=== PATIENT | female | born 1955 | race Caucasian/White ===

== ENCOUNTER 2019-11-20 10:44 | Outpatient (CLI) | payer BC, SELFPAY ==
--- NOTE | ~2019-11-20 | XR_ITS ---
XR knee LT 2V 11/20/2019 11:04 Indication: Left knee pain Procedure: 3 views left knee Comparison: No prior studies for comparison. Findings: There is moderate osteoarthritis of the left knee. No fracture or traumatic malalignment. N o significant joint effusion. No radiopaque foreign bodies. Impression: 1: Moderate osteoarthritis of the left knee. Reviewed, dictated and finalized at location A. Impression: 1: Moderate osteoarthritis of the left knee.
== END 2019-11-20 10:45 | disposition home or self-care (01) ==
PROVIDERS: PCP Nurse Practitioner Family; Visit Provider Nurse Practitioner Family
DX: M25.562 Pain in left knee (principal); M17.12 Unilateral primary osteoarthritis, left knee
CPT/HCPCS: 73560

== ENCOUNTER 2020-06-24 08:17 | Outpatient (CLI) | payer BC, SELFPAY ==
--- NOTE | ~2020-06-24 | MM_ITS ---
EXAMINATION: MM screening [facility] BI w william HISTORY: Screening mammogram TECHNIQUE: Craniocaudal and mediolateral oblique 3-D tomosynthesis images were obtained and synthetic 2-D images were generated. CAD analysis was submitted and interpreted. COMPARISON: No prior mammogram is available for comparison at this institution. BREAST PARENCHYMAL COMPOSITION: The breasts are almost entirely fatty. FINDINGS: There is no evidence of suspicious mass, calcification, or architectural distortion to sugg est malignancy in either breast. There has been no suspicious interval change. IMPRESSION: 1. No mammographic evidence of malignancy. 2. Recommend routine screening mammography in one year. BI-RADS Category 1: Negative Reviewed, dictated and finalized at location A.
--- NOTE | ~2020-06-24 | DEXA_ITS ---
Bone Density Report Name: Erin Davis Age: 65 Sex: Female Ethnicity: White Date of : 1955 Indication: postmenopausal; prior fracture; rheumatoid arthritis; Referring Provider: Trisha, Tashia Otoole Study: Bone densitometry was performed. Exam Date: June 24, 2020 Accession number: [id number] Bone Density: Region BMD T-score Z-score Classification AP Spine (L1, L2, L3) 0.897 -1.1 0.7 Osteopenia Femoral Neck (Left) 0.489 -3.2 -1.7 Osteoporosis Total Hip (Left) 0.830 -0.9 0.4 Normal Total Hip Bilateral Avg 0.800 -1.1 0.2 Osteopenia Femoral Neck (Right) 0.547 -2.7 -1.1 Osteoporosis Total Hip (Right) 0.769 -1.4 -0.1 Osteopenia World Health Organization criteria for BMD impression classify patients as: Normal (T-score at or above -1.0), Osteopenia (T-score between -1.0 and -2.5), or Osteoporosis (T-score at or below -2.5). 10-year Fracture Risk: FRAX not reported because: Some T-score for Spine Total or Hip Total or Femoral Neck at or below -2.5 Treated for osteoporosis Clinical Information Provided by Patient: Has had a low trauma fracture Has rheumatoid arthritis Is being treated for osteoporosis Has used the following medications: Boniva (i.e. ibandronate), Vitamin D, Calcium Patient maximum height was 63 Menopause Age: 49 Drinks caffeinated beverages Onset of menses at age 11 Number of children 3 Impression: The patient has established osteoporosis, based on the Left Femoral Neck T-score and the existence of a prior fracture. The patient has risk factors, including: previous fracture. Discussion: It is important to ask patients whether they are taking their medications and to encourage continued and appropriate compliance with their osteoporosis therapies to reduce fracture risk. It is also important to review their risk factors and encourage appropriate calcium and vitamin D intakes, exercise, fall prevention and other lifestyle measures. Follow-Up: Consider a repeat BMD and Vertebral Fracture Assessment (VFA) exam in 2 years or sooner if medically necessary, to reassess this patient's status. Reported by: MAICO on 06/24/2020 8:42:00 AM. Reviewed, dictated and finalized at location ANicolas VALLEJO
== END 2020-06-24 08:18 | disposition home or self-care (01) ==
LOC: ANHIMG 08:23
PROVIDERS: PCP Family Medicine; Visit Provider Nurse Practitioner Obstetrics & Gynecology
DX: Z12.31 Encounter for screening mammogram for malignant neoplasm of breast (principal); Z78.0 Asymptomatic menopausal state; M81.0 Age-related osteoporosis without current pathological fracture; M85.88 Other specified disorders of bone density and structure, other site
CPT/HCPCS: 77063; 77067; 77080

== ENCOUNTER 2021-06-27 09:11 | Outpatient (CLI) | payer BC, MEDICARE, SELFPAY ==
--- NOTE | ~2021-06-27 | MM_ITS ---
EXAMINATION: MM screening [facility] BI w william HISTORY: Screening mammogram TECHNIQUE: Craniocaudal and mediolateral oblique 3-D tomosynthesis images were obtained and synthetic 2-D images were generated. CAD analysis was submitted and interpreted. COMPARISON: 06/24/2020 bilateral screening mammogram BREAST PARENCHYMAL COMPOSITION: The breasts are almost entirely fatty. FINDINGS: There is no evidence of suspicious mass, calcification, or architectural distortion to sugg est malignancy in either breast. There has been no suspicious interval change. IMPRESSION: 1. No mammographic evidence of malignancy. 2. Recommend routine screening mammography in one year. BI-RADS Category 1: Negative Reviewed, dictated and finalized at location A.
== END 2021-06-27 09:12 | disposition home or self-care (01) ==
LOC: ANHIMG 09:12
PROVIDERS: PCP Family Medicine; Visit Provider Nurse Practitioner Family
DX: Z12.31 Encounter for screening mammogram for malignant neoplasm of breast (principal)
CPT/HCPCS: 77063; 77067

== ENCOUNTER → 2022-05-01 10:33 | Outpatient (CLI) | payer MEDICARE, SELFPAY ==
--- NOTE | ~2022-05-01 | XR_ITS ---
XR_[id number]_CR DATE: 05/01/2022 11:01 INDICATION: Bilateral knee pain. No injury. TECHNIQUE: AP and lateral views of right knee COMPARISON: None FINDINGS: There is some calcifications within the medullary space of the mid to distal femoral shaft which may be due to bone infarct or benign chondroid neoplasm. There is moderately severe tricompartment osteoarthritis, with prominent loss of joint spaces at the medial compartment particularly, moderately prominent periarticular spurring at the patellofemoral co mpartment. Mild suprapatellar knee joint effusion. No fracture or dislocation, periosteal reaction or bone destruction is detected. There is chondrocalc inosis at the medial and lateral compartments. Mild osteopenia is suggested. IMPRESSION: Mild knee joint effusion Moderately severe tricompartment osteophytosis Chondrocalcinosis Reviewed, dictated and finalized at Location A. Reviewed, dictated and finalized at location B. 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
--- NOTE | ~2022-05-01 | XR_ITS ---
XR_KNEE1-2VLT_CR DATE: 05/01/2022 11:01 INDICATION: Bilateral knee joint pain TECHNIQUE: AP and lateral views COMPARISON: None FINDINGS: Mild osteopenia. Mild suprapatellar knee joint effusion. There is mild to moderate tricompartment osteoarthritis, with moderate loss of medial Department join t space height. No radiopaque intra-articular loose body. No fracture, dislocation, periosteal reacti on or bone destruction. IMPRESSION: Mild to moderate osteoarthritis Mild knee joint effusion Reviewed, dictated and finalized at Location A. Reviewed, dictated and finalized at location B. 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
== END ==
PROVIDERS: PCP Nurse Practitioner Family; Visit Provider Nurse Practitioner Family
DX: M25.461 Effusion, right knee (principal); M25.462 Effusion, left knee; M17.0 Bilateral primary osteoarthritis of knee
CPT/HCPCS: 73560

== ENCOUNTER 2022-05-11 07:57 | Outpatient (CLI) | payer MEDICARE, SELFPAY ==
[2022-05-11 19:43] LABS: Alanine Aminotransferase 34 U/L (6-35); Albumin Level 4.9 g/dL (3.5-5.1); Alkaline Phosphatase 80 U/L (38-126); Anion Gap 9 mmol/L (8-16); Aspartate Amino Transferase 26 U/L (14-36); Bilirubin,Total 0.5 mg/dL (0.2-1.3); Blood Urea Nitrogen 21 mg/dL (7-17); Calcium 9.7 mg/dL (8.4-10.2); Carbon Dioxide 27 mmol/L (22-30); Chloride 105 mmol/L (98-107); Cholesterol 213 mg/dL (0-200); Estimated Glomerular Filt Rate 41; Glucose 85 mg/dL (65-110); HDL Direct 36 mg/dL; Potassium 4.9 mmol/L (3.4-5.0); Sodium 141 mmol/L (137-145); Triglycerides 184 mg/dL (<150)
[2022-05-11 19:51] LABS: Vitamin D 25 Hydroxy 35.1 ng/mL
[2022-05-11 19:55] LABS: LDL Cholesterol Direct 98 mg/dL
[2022-05-11 20:47] LABS: Basophils Percent Auto 0.6 % (0.2-1.2); Eosinophils Absolute Auto 0.5 K/mm3 (0-0.3); Eosinophils Percent Auto 6.9 % (0-4.4); Hematocrit 38.1 % (37.0-47.0); Hemoglobin 11.9 g/dL (12.0-15.0); Immature Granulocyte Absolute 0.03 K/mm3 (0.00-0.031); Immature Granulocyte Percent A 0.5 % (0-0.5); Lymphocytes Absolute Auto 1.76 K/mm3 (0.9-3.2); Lymphocytes Percent Auto 27.2 % (18.3-44.2); Mean Corpuscular HGB Conc 31.2 g/dl (32-36); Mean Corpuscular Hemoglobin 28.5 pg (26-34); Mean Corpuscular Volume 91.4 fl (80-100); Mean Platelet Volume 9.3 fl (7.4-10.4); Monocytes Absolute Auto 0.6 K/mm3 (0.1-0.6); Monocytes Percent Auto 8.8 % (2.6-8.5); Neutrophils Absolute Auto 3.6 K/mm3 (1.3-6.7); Platelet Count Result 279 k/mm3 (150-375); Red Blood Count 4.17 M/mm3 (4.2-5.4); Red Cell Distribution Width 13.7 % (11.5-14.5); White Blood Count 6.5 K/mm3 (4.5-10.0)
== END 2022-05-11 07:58 | disposition home or self-care (01) ==
LOC: ANHGOSHLAB 07:59
PROVIDERS: PCP Nurse Practitioner Family; Visit Provider Nurse Practitioner Family
DX: I10 Essential (primary) hypertension (principal); Z78.0 Asymptomatic menopausal state; E78.5 Hyperlipidemia, unspecified; E55.9 Vitamin D deficiency, unspecified
CPT/HCPCS: 36415; 80053; 80061; 82306; 84443; 85025

== ENCOUNTER 2022-07-10 14:30 | Outpatient (CLI) | payer MEDICARE, SELFPAY ==
--- NOTE | ~2022-07-10 | DEXA_ITS ---
Bone Density Report Name: SHANNEN VENTURA Age: 67 Sex: Female Ethnicity: White Date of : 1955 Indication: osteopenia; parental hip fracture; prior fracture; asthma or emphysema; rheumatoid arthritis; postmenopausal Referring Provider: DEYANIRA CORDERO Study: Bone densitometry was performed. Exam Date: July 10, 2022 Accession number: [id number] Bone Density: Region BMD T-score Z-score Classification AP Spine(L1, L2, L3) 0.904 -1.0 0.9 Normal Femoral Neck (Left) 0.568 -2.5 -0.8 Osteoporosis Total Hip (Left) 0.832 -0.9 0.5 Normal Femoral Neck (Right) 0.560 -2.6 -0.9 Osteoporosis Total Hip (Right) 0.783 -1.3 0.1 Osteopenia Total Hip Mean 0.808 -1.1 0.3 Osteopenia World Health Organization criteria for BMD impression classify patients as: Normal (T-score at or above -1.0), Osteopenia (T-score between -1.0 and -2.5), or Osteoporosis (T-score at or below -2.5). 10-year Fracture Risk: FRAX not reported because: Some T-score for Spine Total or Hip Total or Femoral Neck at or below -2.5 Previous Exams: Region Exam Age BMD T-score BMD Change BMD Change Date g/cm2 vs Baseline vs Previous AP Spine (L1-L3) 07/10/2022 67 0.904 -1.0 0.007 (0.8%) 0.007 (0.8%) 06/24/2020 65 0.897 -1.1 Total Hip(Left) 07/10/2022 67 0.832 -0.9 0.003 (0.3%) 0.003 (0.3%) 06/24/2020 65 0.830 -0.9 Total Hip(Right) 07/10/2022 67 0.783 -1.3 0.015 (1.9%) 0.015 (1.9%) 06/24/2020 65 0.769 -1.4 *Denotes significance at 95% confidence level, LSC for AP Spine = 0.022 g/cm2, LSC for Total Hip = 0.027 g/cm2 Clinical Information Provided by Patient: Has had a low trauma fracture Parent has had a hip fracture Has rheumatoid arthritis Has used the following medications: Reclast (i.e. zoledronate), Vitamin D, Calcium Has the following medical conditions: Asthma or Emphysema Patient maximum height was 62.5 Menopause Age: 49 Drinks caffeinated beverages Onset of menses at age 11 Number of children 3 Impression: The patient has established osteoporosis, based on the Right Femoral Neck T-score and the existence of a prior fracture. The patient has risk factors, including: parental hip fracture, previous fracture. No significant bone loss was observed. Discussion: HIGH RISK OF FRACTURE. BONE DENSITY IS UNDESIRABLY LOW AT ONE OR MORE SKELETAL SITES, CONSISTENT WITH POSTMENOPAUSAL OSTEOPOROSIS. This patient's lowest T-score, in a patient who has previous
--- NOTE | ~2022-07-10 | MM_ITS ---
EXAMINATION: MM screening [facility] BI w william HISTORY: Screening mammogram TECHNIQUE: Craniocaudal and mediolateral oblique 3-D tomosynthesis images were obtained and synthetic 2-D images were generated. CAD analysis was submitted and interpreted. COMPARISON: 06/27/2021, 06/24/2020 BREAST PARENCHYMAL COMPOSITION: There are scattered areas of fibroglandular density. FINDINGS: No suspicious mass, calcification, or architectural distortion are identified in either aliza ast to suggest malignancy. There has been no suspicious interval change. IMPRESSION: 1. No mammographic evidence of malignancy. 2. Recommend routine screening mammography in one year. BI-RADS Category 1: Negative Reviewed, dictated and finalized at location A.
== END 2022-07-10 14:31 | disposition home or self-care (01) ==
LOC: ANHIMG 14:32
PROVIDERS: PCP Nurse Practitioner Family; Visit Provider Nurse Practitioner Family
DX: Z12.31 Encounter for screening mammogram for malignant neoplasm of breast (principal); Z78.0 Asymptomatic menopausal state; M81.0 Age-related osteoporosis without current pathological fracture; M85.851 Other specified disorders of bone density and structure, right thigh
CPT/HCPCS: 77063; 77067; 77080

== ENCOUNTER 2023-10-12 09:56 | Outpatient (CLI) | payer MEDICARE, SELFPAY ==
--- NOTE | ~2023-10-12 | MM_ITS ---
EXAMINATION: MM screening [facility]ene[facility] BI w william HISTORY: Screening TECHNIQUE: Craniocaudal and mediolateral oblique 3-D tomosynthesis images were obtained and synthetic 2-D images were generated. CAD analysis was submitted and interpreted. COMPARISON: Comparison to multiple prior studies sequentially, with oldest reviewed study dated 06/24. BREAST PARENCHYMAL COMPOSITION: Not dense: There are scattered areas of fibroglandular density. FINDINGS: There is no evidence of suspicious mass, calcification, or architectural distortion to sugg est malignancy in either breast. There has been no suspicious interval change. IMPRESSION: 1. No mammographic evidence of malignancy. 2. Recommend routine screening mammography in one year. BI-RADS Category 1: Negative Reviewed, dictated and finalized at location B.
== END 2023-10-12 09:57 | disposition home or self-care (01) ==
PROVIDERS: PCP Family Medicine; Visit Provider Nurse Practitioner
DX: Z12.31 Encounter for screening mammogram for malignant neoplasm of breast (principal)
CPT/HCPCS: 77063; 77067

== ENCOUNTER 2024-10-16 08:38 | Outpatient (CLI) | payer MEDICARE, SELFPAY ==
--- NOTE | ~2024-10-16 | MM_ITS ---
EXAMINATION: [facility] HISTORY: Screening mammogram TECHNIQUE: Craniocaudal and mediolateral oblique 3-D tomosynthesis images were obtained and synthetic 2-D images were generated. CAD analysis was submitted and interpreted. COMPARISON: 10/12/2023, 07/10/2022, 07/15/2021, 06/24/2020 BREAST PARENCHYMAL COMPOSITION:Not Dense. The breasts are almost entirely fatty FINDINGS: No suspicious mass, calcification, or architectural distortion are identified in either breast to suggest malignancy. There has been no suspicious interval change. IMPRESSION: No mammographic evidence of malignancy. Recommend routine screening mammography in one year. BI-RADS Category 1: Negative Reviewed, dictated and finalized at location .
--- NOTE | ~2024-10-16 | DEXA_ITS ---
Bone Density Report Name: SHANNEN VENTURA Age: 69 Sex: Female Ethnicity: White Date of : 1955 Indication: osteopenia; monitoring treatment; parental hip fracture; asthma or emphysema; rheumatoid arthritis; Referring Provider: QUINTON, JUNIOR Muhammad Study: Bone densitometry was performed. Exam Date: October 16, 2024 Accession number: [id number] Bone Density: Region BMD T-score Z-score Classification AP Spine(L1-L4) 1.029 -0.2 2.0 Normal Femoral Neck (Left) 0.539 -2.8 -1.0 Osteoporosis Total Hip (Left) 0.799 -1.2 0.4 Osteopenia Femoral Neck (Right) 0.543 -2.8 -0.9 Osteoporosis Total Hip (Right) 0.738 -1.7 -0.1 Osteopenia Total Hip Mean 0.769 -1.5 0.2 Osteopenia World Health Organization criteria for BMD impression classify patients as: Normal (T-score at or above -1.0), Osteopenia (T-score between -1.0 and -2.5), or Osteoporosis (T-score at or below -2.5). 10-year Fracture Risk: FRAX not reported because: Some T-score for Spine Total or Hip Total or Femoral Neck at or below -2.5 Treated for osteoporosis Previous Exams: Region Exam Age BMD T-score BMD Change BMD Change Date g/cm2 vs Baseline vs Previous Total Hip(Left) 10/16/2024 69 0.799 -1.2 -0.031 (-3.7%) -0.033 (-4.0%) 07/10/2022 67 0.832 -0.9 0.003 (0.3%) 0.003 (0.3%) 06/24/2020 65 0.830 -0.9 Total Hip(Right) 10/16/2024 69 0.738 -1.7 -0.031 (-4.0%) -0.046 (-5.8%) 07/10/2022 67 0.783 -1.3 0.015 (1.9%) 0.015 (1.9%) 06/24/2020 65 0.769 -1.4 *Denotes significance at 95% confidence level, LSC for Total Hip = 0.027 g/cm2 Clinical Information Provided by Patient: Parent has had a hip fracture Has rheumatoid arthritis Is being treated for osteoporosis Has used the following medications: Reclast (i.e. zoledronate), Prolia (i.e. denosumab), Vitamin D, Calcium Has the following medical conditions: Asthma or Emphysema Patient maximum height was 62.5 Menopause Age: 49 Drinks caffeinated beverages Onset of menses at age 11 Number of children 3 Impression: The patient has osteoporosis, based on the Left Femoral Neck T-score. The patient has risk factors, including: parental hip fracture. The BMD for the Total Hip(Left) decreased, changing by -4.0% since the last DXA exam. The BMD for the Total Hip(Right) decreased, changing by -5.8% since the last DXA exam. Discussion: SIGNIFICANT BONE LOSS OBSERVED. Adherence to therapy (including calcium and vitamin D intake) should be assessed. If compliance is not a factor, review management and exclusion of secondary causes of bone loss. It is important to ask patients whether they are taking their medications and to encourage continued and appropriate compliance with their osteoporosis therapies to reduce fracture risk. It is also important to review their risk factors and encourage appropriate calcium and vitamin D intakes, exercise, fall prevention and other lifestyle measures. Follow-Up: Consider a repeat BMD and Vertebral Fracture Assessment (VFA) exam in 2 years or sooner if medically necessary, to reassess this patient's status. Reported by: MALIK on 10/16/2024 9:23:00 AM. Reviewed, dictated and finalized at location A.
--- OUTSIDE RECORDS SUMMARY | 2024-10-16 08:52 | XMS_ITS | Clinical Summary ---
Author Organization [facility] Address [address] [place] [address] Care Team Providers Care Building Components Designer Name Role Phone Alyssa Jenkins MD Primary Care Provider Un available Source Comments [facility],non-owned Affiliates and Associated Physician Practices is amultiple site organization consisting of ambulatory clinics and hospital sitesin [place], [place], [place] and [place]. This disclosure is being madepursuant to the Care Everywhere program and may not contain all information available regarding this patient. Last updated 17.[facility] Allergies Active Allergy Reactions Criticality Noted Date Comments Skin Adhesives Rash Medium 04/08/2020 Paper tape Epinephrine-Chlorpheniramine Anaphylaxis High 2020 Latex Rash Medium 04/08/2020 Penicillins Anaphylaxis High 02/12/2020 Medications * Be aware that medications may not be up to date on this document. Alwaysverify current medications with the patient. traMADol (ULTRAM) 50 MG tablet Take 50 mg by mouth 2 times daily as needed For pain. 0 Active ALPRAZolam (XANAX) 0.25 MG tablet Take 1 (one) tablet by mouth once daily as needed 0 Active albuterol HFA (PROVENTIL;VENT HERMAN;PROAIR) 108 (90 Base) MCG/ACT inhaler Inhale 1 (one) puff by mouth every 4 hours as needed 0 Active ASMANEX HFA 100 MCG/ACT Inhale 1 puff by mouth once daily 0 Active montelukast (SINGULAIR) 10 MG tablet Take 10 mg by mouth once daily As needed 0 Active diclofenac sodium (VOLTAREN) 1 % gel Apply 2 (two) g to 4 (four) g to affected area 4 times daily as needed (Knees and hands) 0 Active Ascorbic Acid (VITAMIN C) 500 MG Active aspirin (ASPIRIN) 81 MG chew tablet Take 1 (one) tablet by mouth once daily Active colchicine 0.6 MG tablet Take 1 (one) tablet by mouth once daily 30 tablet 2 1 Active Additional Information Patient not taking.Reported on 07/10/2023 losartan (Cozaar) 25 MG tablet Take 1 (one) tablet by mouth once daily Active diclofenac sodium EC (Voltaren) 50 MG tablet Take 1 (one) tablet by mouth 2 times daily Active Active Problems Problem Noted Date Diagnosed Date MGUS (monoclonal gammopathy of unknown significa nce) 07/05/2021 Senile osteoporosis 11/30/2020 Immunizations Immunization Administration Dates Next Due FLU VACCINE TRI IIV3 SPLIT PF IM (FLUVIRIN) 04/2013 INFLUENZA VACCINE, HIGH-DOSE , QUADR. (FLUZONE HIGH-DOSE QUADRIVALENT; 65Y+), 0.7 ML (HD-IIV4) 12/20/2019 Family History Medical History Relation Name Comments Lupus Father Lupus Paternal Uncle Relation Name Status Comments Father Paternal Uncle Social History Tobacco Use Types Packs/Day Years Used Date Smoking Tobacco: Former Cigarettes Q uit: 02/12/1980 Smokeless Tobacco: Never Tobacco Cessation:Counseling Given: Not Answered Alcohol Use Standard Drinks/Week Comments Never 0 (1 standard drink = 0.6 oz pur e alcohol) AUDIT-C Answer Date Recorded Q1: How often do you have a drink containing alc ohol? Never 02/12/2020 Average Number of Drinks Not on file 020 Frequency of Binge Drinking Not on file 01/26 PHQ-2 Answer Date Recorded PHQ2 TOTAL SCORE 0 11/11/2020 Comments Unknown Sex and Gender Information Value Date Recorded Sex Assigned at Not on file Legal Sex Female 2:41 PM EDGE INKER Gender Identity Not on file Sexual Orientation Not on file Last Filed Vital Signs Vital Sign Reading Time Taken Comments Blood Pressure 136/83 01/15/2024 12:56 PM EDGE INKER Pulse 74 01/15/2024 12:56 PM ED[facility] INKER Temperature 36.7 C (98 F) 01/15/2024 12:56 PM ED[facility] INKER Respiratory Rate 20 01/15/2024 12:56 PM [facility]ER Oxygen Saturation 99% 01/15/2024 12:56 PM [facility] INKER Inhaled Oxygen Concentration - - Weight 78.7 kg (173 lb 9.6 oz) 01/15/2024 12:56 PM EDGE INKER Height 157.5 cm (5' 2) 07/10/2023 10:18 AM CDT Body Mass Index 31.75 07/10/2023 10:18 AM CDT Plan of Treatment Upcoming Encounters Date Type Department Care Team (Late st Contact Info) Description 01/13/2025 1:00 PM EDGE INKER Office Visit [facility] - Hematology/Oncology [address] [place] [id number] Amol Hammer MD [address] [facility] [place], [place] [id number] Health Maintenance Due Date Last Done Comments BONE DENSITY TESTING 1955 COLOGUARD (AGES 45-75) - COLON CA SCREENING 1955 COLON MONITORING 1955 COLONOSCOPY - COLON CA SCREENING 1955 CT COLONOGRAPHY - COLON CA SCREENING 1955 Colorectal Cancer Screening 1955 FIT - COLON CA SCREENING 1955 FLEX SIG - COLON CA SCREENING 1955 LIPID TESTING 1955 MAMMOGRAM 1955 DTAP/TDAP/TD VACCINES (1 - Tdap) 1973 PNEUMOCOCCAL VACCINE 50+ (1 of 1 - PCV) 02/27/2004 ZOSTER VACCINE (1 of 2) 02/27/2004 COVID-19 VACCINE (3 - season) 2023 05/13/2020, 04/22/2020 DEPRESSION SCREENING 02/27/2024 MEDICARE AWV CALENDAR YEAR 2024 INFLUENZA VACCINE (#1) 2024 12/20/2019, 2013 SCREENING FOR DIABETES 01/14/2027 4, 10/22/2023, 07/10/2023, Additional history exists Respiratory Syncytial Virus (RSV) Vaccine Pt: or over 60 yrs (1 - 1-dose 75+ series) 2029 HEPATITIS C SCREENING Completed 02/12/2020 HEPATITIS B VACCINE Aged Out No longe r eligible based on patient's age to complete this topic HIB VACCINE Aged Out No longer eligi ble based on patient's age to complete this topic HPV VACCINE Aged Out No longer eligi ble based on patient's age to complete this topic MENINGOCOCCAL (Group B) VACCINE SHARED DECISION-MAKING Aged Out No longer eligible based on patient's age to complete this topic MENINGOCOCCAL GROUPS A/C/Y/W VACCINE Aged Out No longer eligible based on patient's age to complete this topic Procedures Procedure Name Priority Date/Time Associated Diagnosis Comments COMPREHENSIVE METABOLIC PANEL STAT 01/15/2024 12:27 PM ED[facility] INKER MGUS (monoclonal gammopathy of unknown significance) HEPATITIS C AB SCREEN RFLX NAAT QUANT Routine 02/12/2020 12:40 PM EDGE INKER Polyarthralgia from Last 3 Months or Most Recently Relevant to Health Maintenance Results * (ABNORMAL) COMPREHENSIVE METABOLIC PANEL (01/15/2024 12:27 PM EDGE INKER) BUN 28(H) 7 - 26 mg/dL 01/15/2024 1:21 PM [facility] Creatinine 1.30(H) 0.56 - 0.96 mg/dL 01/15/2024 1:21 PM [facility] Sodium 138 136 - 145 mmol/L 01/15/2024 1:21 PM [facility] Potassium 4.4 3.5 - 4.5 mmol/L 01/15/2024 1:21 PM [facility] Chloride 106 98 - 107 mmol/L 01/15/2024 1:21 PM [facility] CO2 24 22 - 29 mmol/L 01/15/2024 1:21 PM [facility] Glucose 79 70 - 99 mg/dL 01/15/2024 1:21 PM [facility] Calcium 9.8 8.4 - 10.2 mg/dL 01/15/2024 1:21 PM [facility] Protein Total 7.5 6.0 - 8.3 g/dL 01/15/2024 1:21 PM [facility] Albumin 4.0 3.4 - 5.0 g/dL 01/15/2024 1:21 PM [facility] Bilirubin Total 0.5 0.2 - 1.2 mg/dL 01/15/2024 1:21 PM [facility] Alkaline Phosphatase 83 40 - 150 U/L 01/15/2024 1:21 PM [facility] ALT 51 5 - 55 U/L 01/15/2024 1:21 PM [facility] AST 30 5 - 34 U/L 01/15/2024 1:21 PM [facility] Anion Gap 8 6 - 16 01/15/2024 1:21 PM [facility] BUN/Creatinine Ratio 22 7 - 23 01/15/2024 1:21 PM [facility] Osmolality Calculated 290 275 - 295 mOsm/kg 01/15/2024 1:21 PM [facility] Albumin/Globulin Ratio 1.1 1.1 - 2.3 01/15/2024 1:21 PM [facility] eGFR by CKD-EPI 45(L) >=90 mL/min/1.7 3 m2 01/15/2024 1:21 PM [facility] Blood BLOOD SPECIMEN / Unknown Lab Venipuncture / Unknown 01/15/2024 12:27 PM [facility] 01/15/2024 12:50 PM [facility] Amirah Wang [facility] - CHEMISTRY ORDE DONTE Final Result [facility] [address] [place] [address], [facility] [phone] * HEPATITIS C AB SCREEN RFLX NAAT QUANT (02/12/2020 12:40 PM EDGE INKER) Hepatitis C Antibody Non-react irma Non-reac tive 02/12/2020 1:53 PM [facility] Comment:Hepatitis C Antibody screen indicates no serologic evidence of past or current infection with Hepatitis C Virus. Patients with unexplained liver disease who are immunocompromised or suspected of having acute Hepatitis C infection may benefit from Nucleic Acid Test (LIBRA) for Hepatitis C Viral RNA to confirm Hepatitis C status. Blood BLOOD SPECIMEN / Unknown Lab Venipuncture / Unknown 02/12/2020 12:40 PM ED[facility]ER 02/12/2020 1:03 PM [facility] Zak Pablo MD LAB - CHEMISTRY ORDERABLES [facility] Result [facility] [address] [place] [address], [facility] [phone] from Last 3 Months or Most Recently Relevant to Health Maintenance Insurance [facility] MANAGED MEDICARE ADV COUNTS INCLUDE 234 BEDS AT THE [facility] MANAGED MEDICARE ADV Member Subscriber Plan / Payer (Ef fective 2021-Present) Name:Devon Davisine Janie Relation to Subscriber:Self Name:Erin Davis Payer ID:[id number] (NAIC) Type:Medicare-Managed Care Address: [place] [phone] Care Teams Building Components Designer Relationship Specialty Start Date End Date Alyssa Jenkins MD [address] [address] PCP - General 01/03/19
--- OUTSIDE RECORDS SUMMARY | 2024-10-16 08:52 | XMS_ITS | Patient Health Record ---
Author Organization [facility] Address [address] [place] [address] [place] [address] Care Team Providers Care Audit Director Name Role Phone CONSTANTINO ORITZ MD Primary Care Provider Michael Benson Unavailable [phone] ALLERGIES Allergen (clinical drug ingredient) Drug/Non Drug Allergy documented on EMR Reaction Allergy Type Onset Date Status Adhesive rash Allergy Active Bee Sting Unknown Allergy Active Latex Latex rash Allergy Active Penicillin anaphylaxis Drug Allergy Acti ve REASON FOR REFERRAL No Information MEDICATIONS Medication SIG (Take, Route, Frequency, Duration) Notes Start Date End Date Status Albuterol Sulfate (sensor) 108 (90 Base) MCG/ACT 1 puff as needed Inhalation every 4 hrs Active Diclofenac Sodium 50 MG 1 tablet as need ed Orally Twice a day Active hydrOXYzine HCl 25 MG 1 tablet at bedtim e as needed Orally Once a day for 30 day(s) Active Voltaren 1 % as directed Externally Active Aspirin 81 MG 1 tablet Orally Once a day for 30 day(s) Active Lisinopril 40 MG 1 tablet Orally Once a day for 30 day(s) Active Xanax 0.25 MG 1 tablet Orally Once a day Active Losartan Potassium 100 MG TAKE 1 TABLET BY MOUTH EVERY DAY Oral for 90 Active PROBLEMS Problem Type ICD Code Onset Dates Problem Status W/U Status Risk SNOMED Code Notes Problem Fear of injections and transfusions (F40.231) Active confirmed Fear of medical treatment (138864903) Problem Rheumatoid arthritis, unspecified (M06.9) Active confirmed Rheumatoid arthritis (41312899) Problem Bilateral primary osteoarthritis of knee (M17.0) Active confirmed Osteoarthritis of knee (442170798) Problem Pain in right knee (M25.561) Active confirmed Pain of right knee region (finding) (810802931123737) Problem Pain in left knee (M25.562) Active confirmed Pain of left kn ee joint (finding) (612092362160094) Problem Pain in unspecified knee (M25.569) Active confirmed Pain of knee region (finding) (3461560301) Problem retirement (current) use of opiate analgesic (Z79.891) Active confirmed High risk drug monitoring status (181186534) PLAN OF TREATMENT No Information Insurance Providers Payer Name Payer Address Payer Phone Subscriber Number Group Number Insured Name Patient Relationship to Insured Coverage Start Date Coverage End Date [facility] [employer] [address] [place] [address] [id number] SHANNEN VENTURA Self - patient is the insured MEDICAL (GENERAL) HISTORY Medical History History ICD Code Anemia Asthma Rheumatoid arthritis Osteoarthritis Osteoporosis Hypertension Surgical History Surgery Date(Month/Year) Bilateral Ovaries and Tubes Removed 2012 Hospitalization History Reason Date(Month/Year)
--- OUTSIDE RECORDS SUMMARY | 2024-10-16 08:52 | XMS_ITS | Encounter Summary ---
Author Organization [facility] Address [address] [address] Care Team Providers Care Vinyl Dipper Name Role Phone Alyssa Jenkins MD Primary Care Provider Un available Encounter Details Date Type Department Care Team (Late st Contact Info) Description 02/24/2020 Telephone [facility] [address] [place] [address] Zak Pablo MD [address] [place] [id number] Social History Tobacco Use Types Packs/Day Years Used Date Smoking Tobacco: Former Cigarettes Q uit: 02/12/1980 Smokeless Tobacco: Never Alcohol Use Standard Drinks/Week Comments Never 0 (1 standard drink = 0.6 oz pur e alcohol) AUDIT-C Answer Date Recorded Q1: How often do you have a drink containing alc ohol? Never 02/12/2020 Average Number of Drinks Not on file 020 Frequency of Binge Drinking Not on file 01/26 Comments Unknown Sex and Gender Information Value Date Recorded Sex Assigned at Not on file Legal Sex Female 2:41 PM LINEN AIDE Gender Identity Not on file Sexual Orientation Not on file COVID-19 Exposure Response Date Recorded In the last month, have you been in contact with someone who was confirmed or suspected to have Coronavirus / COVID-19? No / Unsure 02/25/2020 10:17 AM LINEN AIDE documented as of this encounter Miscellaneous Notes * Telephone Encounter - Ev Ward - 02/24/2020 8:12 AM CST Current Provider name: Dr. Zak Pablo Reason for call: Ms. Davis would like a call from Dr. Pablo to review her 02/12/2020 blood work. Patient Call Back number: [phone] N AIDE documented in this encounter Plan of Treatment Upcoming Encounters Date Type Department Care Team (Late st Contact Info) Description 01/13/2025 1:00 PM LINEN AIDE Office Visit [facility] - Hematology/Oncology [address] [place] [address] Amol Hammer MD [address] [facility]ATOLOGY & MEDICAL ONCOLOGY [place], [place] [id number] documented as of this encounter Visit Diagnoses Not on filedocumented in this encounter Care Teams Vinyl Dipper Relationship Specialty Start Date End Date Alyssa Jenkins MD [address] [place] [address] PCP - General 01/03/19 documented as of this encounter
== END 2024-10-16 08:39 | disposition home or self-care (01) ==
PROVIDERS: PCP Family Medicine; Visit Provider Nurse Practitioner
DX: Z12.31 Encounter for screening mammogram for malignant neoplasm of breast (principal); M81.0 Age-related osteoporosis without current pathological fracture; M85.89 Other specified disorders of bone density and structure, multiple sites; Z78.0 Asymptomatic menopausal state
CPT/HCPCS: 77063; 77067; 77080